=== PATIENT | female | born 1960 | race Caucasian/White ===

== ENCOUNTER → 2017-09-29 22:20 | Emergency (ER) | payer SELFPAY ==
[~2017-09-29 22:20] MED LIST: Ciprofloxacin 400MG IVPREMIX(* 400 MG/200 ML BAG IVPB ONE; NS 0.9% 1000 ML* 1,000 ML IV SCH
[2017-09-30 01:47] LABS: Urine Appearance Cloudy; Urine Blood 2+ (Negative); Urine Color Yellow; Urine Ketones Negative (Negative); Urine Protein Negative (Negative); Urine Specific Gravity 1.008 (1.010-1.030); Urine Urobilinogen Negative (Negative)
[2017-09-30 02:23] LABS: ABS Basophils 0.2 10^3/ul (0-0.2); ABS Eosinophils 0.1 10^3/ul (0-0.6); ABS Lymphocytes 1.7 10^3/ul (1.0-4.8); ABS Monocytes 0.9 10^3/ul (0-0.8); ABS Neutrophils 10.4 10^3/ul (1.5-7.7); ABS Nucleated RBC 0 10^3/ul; Eosinophil % 0.4 % (0-6); Hematocrit 38 % (35-47); Lymphocyte % 13.2 % (25-47); Mean Corpuscular HGB Conc 34 g/dl (31-36); Mean Corpuscular Hemoglobin 31 pg (27-31); Mean Corpuscular Volume 91 fL (80-97); Mean Platelet Volume 8 um3 (7.4-10.4); Nucleated Red Blood Cells % 0; Platelet Count 271 10^3/ul (150-450); Red Blood Count 4.23 10^6/ul (4.0-5.4); Red Cell Distribution Width 14 % (10.5-15); White Blood Count 13.3 10^3/ul (3.5-10.8)
[2017-09-30 03:18] VITALS: BP 137/80
--- NOTE | 2017-10-02 08:50 | PN ---
Progress Note - Progress Note Date of Service: 09/30/17 Note: Urine grew E. coli Patient placed on Cipro prior to discharge.. Will await sensitivities. Nothing further at this time. Carole Alcantar PA-C
--- NOTE | 2017-10-03 08:58 | PN ---
Progress Note - Progress Note Date of Service: 09/30/17 Note: diagnosed and treated for UTI with cipro. has appropriate coverage according to final urine culture results. no further action required at this time.
--- NOTE | 2017-10-15 01:21 | ED ---
Ruby Evans Emily, scribed for Bruce Madden MD on 09/30/17 at 0135 . Abdominal Pain/Female - HPI Summary HPI Summary: This patient is a 57 year old F presenting to [facility] accompanied by family with a chief complaint of R flank pain that began 0800 yesterday. The patient rates the pain 8/10 in severity. Symptoms aggravated by nothing. Symptoms alleviated by nothing. Patient reports nausea, vomiting, fever, chills, and MROALES. Patient denies diarrhea and hematuria. Medications reviewed. Allergies reviewed. - History of Current Complaint Chief Complaint: EDAbdPain Stated Complaint: BACK PAIN Hx Obtained From: Patient Onset/Duration: Sudden Onset, Lasting Hours, Still Present Timing: Constant Severity Initially: Severe Severity Currently: Severe Pain Intensity: 8 Pain Scale Used: 0-10 Numeric Location: Flank Aggravating Factor(s): Nothing Alleviating Factor(s): Nothing Associated Signs and Symptoms: Positive: Fever, Nausea, Vomiting, Other: - Positive chills and MORALES. Negative hematuria. Negative: Diarrhea Allergies/Adverse Reactions: Allergies Allergy/AdvReac Type Severity Reaction Status Date / Time No Known Allergies Allergy Verified 09/30/17 01:21 Home Medications: Home Medications Loratadine [Claritin 10 MG CAP] 10 mg PO DAILY 09/30/17 [History Confirmed 09/30] PMH/Surg Hx/FS Hx/Imm Hx Previously Healthy: No Opthamlomology History: Denies: Hx Legally Blind EENT History: Denies: Hx Deafness - Surgical History Surgery Procedure, Year, and Place: --2012 Infectious Disease History: No Infectious Disease History: Denies: Traveled Outside the [place] in Last 30 Days - Family History Known Family History: Positive: Cardiac Disease, Hypertension, Diabetes - Social History Occupation: Employed Full-time Lives: With Family Alcohol Use: None Substance Use Type: Reports: None Smoking Status (MU): Current Every Day Smoker Amount Used/How Often: 1/2 PPD Length of Time of Smoking/Using Tobacco: 25 Have You Smoked in the Last Year: Yes Review of Systems Positive: Fever, Chills Positive: Vomiting, Nausea. Negative: Diarrhea Negative: hematuria Positive: Headache All Other Systems Reviewed And Are Negative: Yes Physical Exam - Summary Physical Exam Summary: Appearance: Well-appearing, Well-nourished Skin: Warm, Dry, No rash Eyes: Normal, PERRL, EOMI, sclera anicteric ENT: Normal Neck: Supple, nontender Respiratory: Clear to auscultation Cardiovascular: S1, S2, no murmur, no rub, no gallop Abdomen: Soft, no organomegaly, R flank tenderness. Mild right abdominal pain Bowel sounds: Present Musculoskeletal: Normal, Strength/ROM Intact, no edema, pulses symmetrical Neurological: Normal, A&Ox3, cranial nerves II-XII WNL, follows commands, gait not tested, sensation intact to pin and light touch Psychiatric: affect normal, behavior appropriate, dressed appropriately, judgment intact Triage Information Reviewed: Yes Vital Signs On Initial Exam: Initial Vitals Temp Pulse Resp BP Pulse Ox 98.9 F 78 16 152/61 96 09/29/17 22:35 09/29/17 22:35 09/29/17 22:35 09/29/17 22:35 09/29/17 22:35 Vital Signs Reviewed: Yes - Cesar Coma Scale Coma Scale Total: 15 Diagnostics - Vital Signs Vital Signs Temp Pulse Resp BP Pulse Ox 09/30/17 00:55 98.6 F 75 16 132/55 98 09/29/17 22:35 98.9 F 78 16 152/61 96 - Laboratory Result Diagrams: 09/30/17 02:15 09/30/17 02:15 Lab Statement: Any lab studies that have been ordered have been reviewed, and results considered in the medical decision making process. Abdominal Pain Fem Course/Dx - Course Course Of Treatment: This patient is a 57 year old F presenting to [facility] accompanied by family with a chief complaint of R flank pain that began 0800 yesterday. Physical Exam Findings. R flank tenderness. Mild right abdominal pain. Bloodwork and UA obtained. In the ED course the patient was given Ciprofloxacin and fluids. Patient will be discharged with prescription for Ciprofloxacin and follow up from PCP. The patient is agreeable with this plan. - Diagnoses Provider Diagnoses: Pyelonephritis Discharge - Discharge Plan Condition: Fair Disposition: HOME Prescriptions: Ciprofloxacin TAB* [Cipro 500 MG TAB*] 500 mg PO DAILY #14 tab Patient Education Materials: Urinary Tract Infection in Women (ED) Referrals: No Primary Care Phys,NOPCP [Primary Care Provider] - The documentation as recorded by the Ruby barrera Emily accurately reflects the service I personally performed and the decisions made by me, Bruce Madden MD.
== END | disposition home or self-care (01) ==
LOC: ED 22:20
DX: N12 Tubulo-interstitial nephritis, not specified as acute or chronic (principal); R11.2 Nausea with vomiting, unspecified; R50.9 Fever, unspecified; R51 Headache; F17.210 Nicotine dependence, cigarettes, uncomplicated
CPT/HCPCS: 36415; 80053; 81003; 81015; 83690; 85025; 87077; 87086; 87186; 99282; J0744

== ENCOUNTER 2018-12-18 12:43 | Emergency (ER) | payer SELFPAY ==
[2018-12-18 13:14] VITALS: BP 166/90
--- NOTE | 2018-12-18 13:47 | UC ---
Respiratory Complaint HPI - HPI Summary HPI Summary: Ms. Rudolph presented C/O about a week of URI symptoms that have mostly resolved aside from a productive cough. She has now developed a right sided lateral chest pain and is concerned that she may have pneumonia - History of Current Complaint Chief Complaint: UCRespiratory Stated Complaint: CONGESTION RIB PAIN Time Seen by Provider: 12/18/18 13:16 Hx Obtained From: Patient Onset/Duration: Gradual Onset Pain Intensity: 5 - Allergies/Home Medications Allergies/Adverse Reactions: Allergies Allergy/AdvReac Type Severity Reaction Status Date / Time No Known Allergies Allergy Verified 12/18/18 13:13 PMH/Surg Hx/FS Hx/Imm Hx Previously Healthy: Yes - Surgical History Surgical History: Yes Surgery Procedure, Year, and Place: --2012 - Family History Known Family History: Positive: Cardiac Disease, Hypertension, Diabetes - Social History Alcohol Use: None Substance Use Type: None Smoking Status (MU): Light Every Day Tobacco Smoker Amount Used/How Often: 1/2 PPD Length of Time of Smoking/Using Tobacco: 25 Have You Smoked in the Last Year: Yes - Immunization History Most Recent Tetanus Shot: a long time, perhaps early Review of Systems All Other Systems Reviewed And Are Negative: Yes Constitutional: Positive: Fatigue Skin: Positive: Negative Eyes: Positive: Negative ENT: Positive: Sore Throat, Nasal Discharge Respiratory: Positive: Cough Cardiovascular: Positive: Negative Gastrointestinal: Positive: Negative Genitourinary: Positive: Negative Physical Exam - Summary Physical Exam Summary: She is non-toxic in appearance with stable vitals No apparent respiratory distress. Triage Information Reviewed: Yes Appearance: Well-Appearing Vital Signs: Initial Vital Signs Temp 98.6 F 12/18/18 13:09 Pulse 113 12/18/18 13:09 Resp 18 12/18/18 13:09 BP 166/90 12/18/18 13:09 Pulse Ox 99 12/18/18 13:09 Vital Signs Reviewed: Yes ENT Exam: Normal Neck exam: Normal Respiratory Exam: Normal Cardiovascular Exam: Normal Abdominal Exam: Normal Psychological Exam: Normal Diagnostics - Radiology CXR Radiology Interpretation Completed By: Radiologist Summary of Radiographic Findings: No acute process Respiratory Course/Dx - Course Course Of Treatment: This is likely a viral bronchitis. She is a smoker but I will trial her on supportive treatment. - Differential Dx/Diagnosis Provider Diagnosis: Bronchitis Discharge - Sign-Out/Discharge Documenting (check all that apply): Patient Departure All imaging exams completed and their final reports reviewed: Yes - Discharge Plan Condition: Stable Disposition: HOME Patient Education Materials: Acute Bronchitis (ED) Referrals: No Primary Care Phys,NOPCP [Primary Care Provider] - - Billing Disposition and Condition Condition: STABLE Disposition: Home
== END 2018-12-18 14:29 | disposition home or self-care (01) ==
LOC: UCEAST 12:43
DX: J40 Bronchitis, not specified as acute or chronic (principal); F17.210 Nicotine dependence, cigarettes, uncomplicated
CPT/HCPCS: 71046; 99212; G0463

== ENCOUNTER 2018-12-24 17:54 | Inpatient (IN) | payer SELFPAY ==
[2018-12-24 18:25] LABS: Influenza A Molecular NEGATIVE (Negative); Influenza B Molecular NEGATIVE (Negative)
[2018-12-24 18:43] LABS: Hematocrit 39 % (33-41); Hemoglobin 13.1 g/dL (12.0-16.0); Mean Corpuscular HGB Conc 33 g/dL (31-36); Mean Corpuscular Hemoglobin 30 pg (27-31); Mean Corpuscular Volume 89 fL (80-97); Mean Platelet Volume 8.2 fL (7.4-10.4); Platelet Count 347 10^3/uL (150-450); Red Blood Count 4.41 10^6 /uL (3.70-4.87); Red Cell Distribution Width 14 % (10.5-15); White Blood Count 15.3 10^3/uL (3.5-10.8)
--- NOTE | 2018-12-24 18:54 | ED ---
Influenza-Like Illness - HPI Summary HPI Summary: Patient complains of flulike symptoms 2 weeks. Symptoms include cough, chest pain and back pain with coughing, body aches, decreased appetite, headache. Patient went to [facility] 1 week ago was diagnosed with bronchitis due to negative chest x-ray. Patient states symptoms have progressed she now has joint pain, MORALES, pain with inhalation, shortness of breath. Patient denies neck stiffness, N/V/D, abdominal pain, change in urine, change in BM. Patient denies estrogen supplements, recent history of surgery or trauma, history of blood clots, history of unilateral leg pain. Medical history is none. Positive smoker. - History of Current Complaint Chief Complaint: EDFluSymptoms Time Seen by Provider: 12/24/18 18:17 Hx Obtained From: Patient Onset/Duration: Gradual Onset, Lasting Weeks Severity: Moderate Associated Signs & Symptoms: Fever, Myalgia, Cough, Headache - Allergy/Home Medications Allergies/Adverse Reactions: Allergies Allergy/AdvReac Type Severity Reaction Status Date / Time No Known Allergies Allergy Verified 12/24/18 17:59 PMH/Surg Hx/FS Hx/Imm Hx Endocrine/Hematology History: Denies: Hx Anticoagulant Therapy Cardiovascular History: Denies: Hx Pacemaker/ICD History: Denies: Hx Dialysis Sensory History: Denies: Hx Legally Blind, Hx Deafness Opthamlomology History: Denies: Hx Legally Blind EENT History: Denies: Hx Deafness Neurological History: Denies: Hx Dementia Psychiatric History: Denies: Hx Autism - Surgical History Surgery Procedure, Year, and Place: --2012 Infectious Disease History: No Infectious Disease History: Denies: Traveled Outside the [place] in Last 30 Days - Family History Known Family History: Positive: Cardiac Disease, Hypertension, Diabetes - Social History Alcohol Use: None Substance Use Type: Reports: None Hx Tobacco Use: Yes Smoking Status (MU): Light Every Day Tobacco Smoker Amount Used/How Often: 1/2 PPD Length of Time of Smoking/Using Tobacco: 25 Have You Smoked in the Last Year: Yes Review of Systems Positive: Fever Eyes: Negative ENT: Negative Positive: Chest Pain Positive: Shortness Of Breath, Cough Gastrointestinal: Negative Genitourinary: Negative Positive: Arthralgia, Myalgia Skin: Negative Positive: Headache Psychological: Normal All Other Systems Reviewed And Are Negative: Yes Physical Exam - Summary Physical Exam Summary: Lung sounds clear to auscultation bilaterally. RRR. Abdomen soft nontender. ENT exam unremarkable. Triage Information Reviewed: Yes Vital Signs On Initial Exam: Initial Vitals Temp Pulse Resp BP Pulse Ox 99.9 F 133 18 127/71 91 12/24/18 17:55 12/24/18 17:55 12/24/18 17:55 12/24/18 17:55 12/24/18 17:55 Vital Signs Reviewed: Yes Appearance: Positive: Well-Appearing Skin: Positive: Warm Head/Face: Positive: Normal Head/Face Inspection Eyes: Positive: Normal ENT: Positive: Normal ENT inspection Neck: Positive: Supple Respiratory/Lung Sounds: Positive: Clear to Auscultation Cardiovascular: Positive: Normal Abdomen Description: Positive: Nontender Musculoskeletal: Positive: Normal Neurological: Positive: Normal Psychiatric: Positive: Normal AVPU Assessment: Alert - [place] Coma Scale Best Eye Response: 4 - Spontaneous Best Motor Response: 6 - Obeys Commands Best Verbal Response: 5 - Oriented Coma Scale Total: 15 Diagnostics - Vital Signs Vital Signs Temp Pulse Resp BP Pulse Ox 12/24/18 17:55 99.9 F 133 18 127/71 91 - Laboratory Lab Results: Lab Results 12/24/18 12/24/18 Range/Units 18:01 18:36 WBC 15.3 H (3.5-10.8) 10^3/uL RBC 4.41 (3.70-4.87) 10^6 /uL Hgb 13.1 (12.0-16.0) g/dL Hct 39 (33-41) % MCV 89 (80-97) fL MCH 30 (27-31) pg MCHC 33 (31-36) g/dL RDW 14 (10.5-15) % Plt Count 347 (150-450) 10^3/uL MPV 8.2 (7.4-10.4) fL Neut % (Auto) Pending Lymph % (Auto) Pending Wolfe % (Auto) Pending Eos % (Auto) Pending Baso % (Auto) Pending Absolute Neuts (auto) Pending Absolute Lymphs (auto) Pending Absolute Monos (auto) Pending Absolute Eos (auto) Pending Absolute Basos (auto) Pending Absolute Nucleated RBC Pending Nucleated RBC % Pending Influenza A (Rapid) Negative (Negative) Influenza B (Rapid) Negative (Negative) Result Diagrams: 12/24/18 18:36 12/24/18 18:36 Lab Statement: Any lab studies that have been ordered have been reviewed, and results considered in the medical decision making process. Flu Symptom Course/Dx - Course Course Of Treatment: Patient complains of flulike symptoms 2 weeks. Symptoms include cough, chest pain and back pain with coughing, body aches, decreased appetite, headache. Patient went to [facility] 1 week ago was diagnosed with bronchitis due to negative chest x-ray. Patient states symptoms have progressed she now has joint pain, MORALES, pain with inhalation, shortness of breath. Patient denies neck stiffness, N/V/D, abdominal pain, change in urine, change in BM. Patient denies estrogen supplements, recent history of surgery or trauma, history of blood clots, history of unilateral leg pain. Medical history is none. Positive smoker. Physical exam:Lung sounds clear to auscultation bilaterally. RRR. Abdomen soft nontender. ENT exam unremarkable. Patient febrile, tachycardic, tachypneic. O2 sats low 90s. WBC 15.3. ABG PO2 56. CRP 222. Sodium 127. Potassium 3.4. Anion gap 12. Flu negative. Chest x-ray positive for left lower lobe pneumonia. Diagnosis sepsis , pneumonia, hypoxia. Admitted to hospitalist Dr. Ace. Patient started on Levaquin IV here in the ED. - Diagnoses Provider Diagnoses: Sepsis, Hypoxia, Pneumonia Discharge - Sign-Out/Discharge Documenting (check all that apply): Patient Departure Patient Received Moderate/Deep Sedation with Procedure: No - Discharge Plan Condition: Fair Disposition: ADMITTED TO [facility] Referrals: No Primary Care Phys,NOPCP [Primary Care Provider] - - Billing Disposition and Condition Condition: FAIR Disposition: Admitted to [facility]
[2018-12-24 19:01] LABS: Albumin 3.5 g/dL (3.2-5.2); C Reactive Protein 222.72 mg/L (<8.01); EGFR African American 99.1 (>60); EGFR Non-African American 81.9 (>60); Globulin 3.5 g/dL (2-4); Potassium 3.4 mmol/L (3.5-5.0); Total Bilirubin 0.8 mg/dL (0.2-1.0)
[2018-12-24] MEDS ORDERED: NS 0.9% 1000 ML** 1,000 ML IV.FLUID IV ONE (19:02)
[2018-12-24 19:07] LABS: HCG Pregnancy 2.66 mIU/mL
[2018-12-24 19:12] LABS: ABS Basophils 0.1 10^3/ul (0-0.2); ABS Eosinophils 0 10^3/ul (0-0.6); ABS Lymphocytes 0.9 10^3/ul (1.0-4.8); ABS Monocytes 0.8 10^3/ul (0-0.8); ABS Neutrophils 13.4 10^3/ul (1.5-7.7); ABS Nucleated RBC 0 10^3/ul; Eosinophil % 0 %; Lymphocyte % 6.1 %; Nucleated Red Blood Cells % 0
[2018-12-24] MEDS ORDERED: Acetaminophen TAB* 325 MG PO ONE (19:36)
[2018-12-24] MEDS ORDERED: NS 0.9% 1000 ML** 1,000 ML IV ONE (19:37)
[2018-12-24] MEDS ORDERED: Levofloxacin 750 MG IVPREMIX(* 750 MG/150 ML BAG IVPB ONE (19:45)
[2018-12-24] MEDS ORDERED: Magnesium Hydroxide LIQ* 30 ML UDC PO PRN (21:13)
[2018-12-24] MEDS ORDERED: Al Hydrox/Mg Hydrox/Simet LIQ* 30 ML UDC PO PRN (21:13)
[2018-12-24] MEDS ORDERED: Temazepam CAP* 15 MG PO PRN (21:13)
[2018-12-24] MEDS ORDERED: Albuterol 2.5 MG/3 ML NEB.SOL* (0.083%) INH PRN (21:13)
[2018-12-24] MEDS ORDERED: NS 0.9% 1000 ML** 1,000 ML IV SCH (21:15)
[2018-12-24] MEDS ORDERED: guaiFENesin LIQ* 100 MG/5 ML UDC PO PRN (21:17)
--- NOTE | 2018-12-24 22:58 | HP ---
Amended report to correct the date of admission. HISTORY AND PHYSICAL: DATE OF ADMISSION: 12/25/18 PRIMARY CARE PROVIDER: None. CHIEF COMPLAINT: Shortness of breath and cough as well as fever. HISTORY OF PRESENT ILLNESS: Erica Rudolph is a 58-year-old female with no significant past medical history, who presented to the hospital originally approximately 6 days ago complaining of coughing. At that point, she was diagnosed with bronchitis and sent home with a cough medication. She stated that she had been not getting better and approximately 2 days prior to her current admission she developed fever and chills. She also started having night sweats and shortness of breath. She came back to the [facility] today and she was sent over to our facility with the diagnosis of pneumonia and hypoxemia. Here she required oxygen at 3 L of nasal cannula. She is going to be placed on overnight observation with diagnosis of acute hypoxemic respiratory failure and pneumonia. PAST MEDICAL HISTORY: 1. Appendectomy in 2012. 2. History of psoriasis treated with [id number] lotions. MEDICATIONS: Included, 1. Loratadine 10 mg daily. 2. Cough syrup guaifenesin with dextromethorphan on a p.r.n. basis. ALLERGIES: No known drug allergies. FAMILY HISTORY: Positive for father who at the age of 52 secondary to aortic aneurysm. SOCIAL HISTORY: The patient smokes 10 cigarettes a day, and she has been doing so for approximately 28 years. She denies any alcohol or drug use. She has her own business as a house servant. She lives with her mother who would be her surrogate and her mother's name is Sheila Rudolph. REVIEW OF SYSTEMS: Please see history of present illness. In addition to the above mentioned, the patient stated that she had been having arthralgias in bilateral ankles when febrile. All the remaining 12 systems were reviewed with the patient and were otherwise negative. PHYSICAL EXAMINATION GENERAL: The patient is a very pleasant 58-year-old female who is in no acute distress. Alert, awake, oriented x3. VITAL SIGNS: Blood pressure of 128/73, heart rate of 104 and regular, respiratory rate 21, oxygen saturation 92% on 2 L oxygen via nasal cannula, 89% on room air. HEENT: Head: Atraumatic, normocephalic. Eyes: Pupils are equal and reactive to light and accommodation. Oropharynx clear. Mucosa moist. NECK: Supple. No JVD, no bruits bilaterally. RESPIRATORY: Decreased breath sounds at the right middle and lower lobes. CARDIOVASCULAR: Regular rate and rhythm, tachycardia. No murmur. ABDOMEN: Soft, nontender. Bowel sounds are present in all 4 quadrants. EXTREMITIES: There is no edema. Pulses are +2 bilaterally. There is no clubbing or cyanosis. Bilateral ankles were examined. There was no tenderness to palpation and range of motion is intact. SKIN: On examination of the skin, the patient has scattered psoriasis plaque throughout her bilateral upper and lower extremities. NEUROLOGIC: Speech is clear. Cranial nerves II through XII grossly intact. Motor strength is 5/5 bilaterally. PSYCHIATRIC: On psychiatric evaluation, oriented x3 with no evidence of anxiety or depression. DIAGNOSTIC STUDIES/LAB DATA: Laboratory data showed white blood cell count of 15.3, hemoglobin of 13.1, hematocrit of 39, and platelets of 247. ABG showed pH of 7.46, PCO2 of 29, PO2 of 56, and bicarb of 23. Sodium 127, potassium 3.4, chloride 91, carbon dioxide 24, BUN 12, creatinine 0.73. Liver function tests were slightly elevated AST of 49 and alkaline phosphatase of 124. C-reactive protein was 222, lactic acid of 1.2. Influenza testing was negative. The patient's portable chest x-ray showed right middle lobe infiltrate. ASSESSMENT AND PLAN: 1. The patient has pneumonia with sepsis with acute hypoxemic respiratory failure requiring oxygen. At this point, the patient received 1 dose of Levaquin in the emergency department. She is going to be treated with ceftriaxone and azithromycin during the hospital stay. Urine legionella and Streptococcus pneumoniae antigens are going to be obtained as well as well as sputum cultures. Blood cultures were reobtained and flu testing is negative. The patient is going to be placed on continuous intravenous fluids. I will also place the patient on nebulizers on a p.r.n. basis. Currently not wheezing. I suspect that at some point she will try to mobilize her secretions. 2. The patient's hyponatremia is likely due to dehydration. Intravenous fluids are going to be provided and basic metabolic panel is going to be repeated in the morning. 3. For DVT prophylaxis, the patient is going to be placed on heparin subcutaneously. 4. The patient's code status is full and her surrogate decision maker is her mother. 5. The patient has a history of tobacco dependence and she is not interested in nicotine supplementation at this point. She was consulted for approximately 4 minutes during her hospital stay and about harms of smoking and recommended cessation. TIME SPENT: Approximately 65 minutes was spent on the admission of this patient , more than half that time was spent [id number] with the patient during the interview and physical exam. [id number]/[facility] #: [id number] STEFFEN
[2018-12-25] MEDS: cefTRIAXone(*) 1 GM in NS 0.9% 50 ML* 50 ML IVPB SCH ×2 (00:01→23:46)
[2018-12-25] MEDS: Heparin VIAL(*) 5000 UNITS/ML VIAL (FIVE THOUSAND) SUBCUT SCH ×4 (00:02→21:40)
[2018-12-25] MEDS: Azithromycin IV(*) 500 MG in NS 0.9% 250 ML* 250 ML IVPB SCH (00:53)
[2018-12-25] MEDS ORDERED: Acetaminophen TAB* 325 MG PO PRN (02:39)
[2018-12-25 07:27] LABS: ABS Basophils 0 10^3/ul (0-0.2); ABS Eosinophils 0 10^3/ul (0-0.6); ABS Lymphocytes 1.6 10^3/ul (1.0-4.8); ABS Monocytes 0.9 10^3/ul (0-0.8); ABS Nucleated RBC 0 10^3/ul; Eosinophil % 0 %; Hematocrit 32 % (33-41); Hemoglobin 10.9 g/dL (12.0-16.0); Lymphocyte % 8.5 %; Mean Corpuscular HGB Conc 34 g/dL (31-36); Mean Corpuscular Hemoglobin 30 pg (27-31); Mean Corpuscular Volume 89 fL (80-97); Mean Platelet Volume 8.4 fL (7.4-10.4); Nucleated Red Blood Cells % 0; Platelet Count 294 10^3/uL (150-450); Red Cell Distribution Width 14 % (10.5-15); White Blood Count 18.4 10^3/uL (3.5-10.8)
[2018-12-25 07:40] LABS: BUN/Creatinine Ratio 12.2 (8-20); Calcium 8.4 mg/dL (8.6-10.3); EGFR Non-African American 129.7 (>60); Potassium 3.1 mmol/L (3.5-5.0)
[2018-12-25 08:07] LABS: C Reactive Protein 260.12 mg/L (<8.01)
[2018-12-25] MEDS ORDERED: Potassium Chlor TAB* 20 MEQ TAB.ER PO STA (09:11)
[2018-12-25] MEDS ORDERED: Albuterol 2.5 MG/3 ML NEB.SOL* (0.083%) INH PRN (09:59)
[2018-12-25] MEDS ORDERED: Benzonatate CAP* 100 MG PO PRN (10:00)
[2018-12-25] MEDS: GuaiFENesin DM* 5 ML UDC PO SCH ×3 (12:11→21:40)
[2018-12-25] MEDS: Albuterol/Ipratropium NEB.SOL* Albuterol 2.5 MG/Ipratropium 0.5 MG 3 ML INH SCH ×2 (13:13→19:15)
[2018-12-25 14:53] LABS: Erythrocyte Sed Rate 93 mm/Hr (0-29)
--- NOTE | 2018-12-25 16:34 | PN ---
Subjective Date of Service: 12/25/18 Interval History: Pt seen and examined. Meds and labs reviewed. Tmax since this AM = 101.6 F, slightly increased leukocytosis CC: Pt mentions her SOB has improved since admission ROS: Denied MORALES/dizziness, F/C, N/V, CP, SOB, increased cough, sputum production , abd pain, diarrhea, constipation, dysuria, myalgias, arthralgias, throat pain , and new skin lesions. The rest of the 14 point ROS are unremarkable. PHYSICAL EXAM: GEN APPEARANCE: Awake, not in acute distress HEENT: NC/AT, PERRLA, moist oral mucosa, (-) throat erythema NECK: Soft, supple, (-) cervical LAD, (-)JVD HEART: S1S2 WNL, RRR, No MRG CHEST: Bibasal crackles, GAE, No W/R/R ABD: Soft, ND/NT, NABS 4x Q EXT: No C/C/E SKIN: Warm to touch PSYCH: No active psychosis, hallucinations, depression, SI/HI Objective Active Medications: Acetaminophen (Tylenol Tab*) 650 mg PO Q4H PRN PRN Reason: FEVER/PAIN Last Admin: 12/25/18 03:14 Dose: 650 mg Al Hydrox/Mg Hydrox/Simethicone (Maalox Plus*) 30 ml PO Q6H PRN PRN Reason: INDIGESTION Albuterol (Ventolin 2.5 Mg/3 Ml Neb.Kimmy*) 2.5 mg INH [id number] AWAKE PRN PRN Reason: sob/wheezing Albuterol (Ventolin 2.5 Mg/3 Ml Neb.Kimmy*) 2.5 mg INH Q2H PRN PRN Reason: SOB/WHEEZING Albuterol/Ipratropium (Duoneb (Albuterol 2.5 Mg/Ipratropium 0.5 Mg)) 1 neb INH [id number] AWAKE [facility] Last Admin: 12/25/18 13:13 Dose: 1 neb Benzonatate (Tessalon Cap*) 100 mg PO Q6H PRN PRN Reason: COUGH Guaifenesin (Robitussin*) 5 ml PO Q4H PRN PRN Reason: COUGH Guaifenesin/Dextromethorphan (Robitussin Dm*) 10 ml PO TID [facility] Stop: 12/28/18 09:59 Last Admin: 12/25/18 14:32 Dose: Not Given Heparin Sodium (Porcine) (Heparin Vial(*)) 5,000 units SUBCUT Q8HR [facility] Last Admin: 12/25/18 12:12 Dose: 5,000 units Ceftriaxone Sodium 1 gm/ (Sodium Chloride) 50 mls @ 200 mls/hr IVPB Q24H [facility] Last Admin: 12/25/18 00:01 Dose: 200 mls/hr Azithromycin 500 mg/ Sodium (Chloride) 250 mls @ 250 mls/hr IVPB Q24H [facility] Last Admin: 12/25/18 00:53 Dose: 250 mls/hr Vancomycin HCl 1,500 mg/ (Sodium Chloride) 250 mls @ 166.667 mls/hr IVPB ONCE ONE Stop: 12/25/18 17:56 Magnesium Hydroxide (Milk Of Magnesia Liq*) 30 ml PO Q4H PRN PRN Reason: CONSTIPATION Pharmacy Consult (Vancomycin Per Pharmacy*) 1 note FOLLOW UP .VANC PER PHARMACY [facility] Temazepam (Restoril Cap*) 15 mg PO BEDTIME PRN PRN Reason: INSOMNIA Vital Signs - 8 hr 12/25/18 12/25/18 12:04 13:18 Temperature 98.7 F Pulse Rate 93 108 Respiratory 16 16 Rate Blood Pressure 141/57 (mmHg) O2 Sat by Pulse 95 92 Oximetry Oxygen Devices in Use Now: None Result Diagrams: 12/25/18 07:08 12/25/18 07:08 Additional Lab and Data: Lab Results 12/24/18 12/24/18 Range/Units 18:01 18:36 WBC 15.3 H (3.5-10.8) 10^3/uL RBC 4.41 (3.70-4.87) 10^6 /uL Hgb 13.1 (12.0-16.0) g/dL Hct 39 (33-41) % MCV 89 (80-97) fL MCH 30 (27-31) pg MCHC 33 (31-36) g/dL RDW 14 (10.5-15) % Plt Count 347 (150-450) 10^3/uL MPV 8.2 (7.4-10.4) fL Neut % (Auto) Pending Lymph % (Auto) Pending Ralls % (Auto) Pending Eos % (Auto) Pending Baso % (Auto) Pending Absolute Neuts (auto) Pending Absolute Lymphs (auto) Pending Absolute Monos (auto) Pending Absolute Eos (auto) Pending Absolute Basos (auto) Pending Absolute Nucleated RBC Pending Nucleated RBC % Pending Influenza A (Rapid) Negative (Negative) Influenza B (Rapid) Negative (Negative) Microbiology and Other Data: Microbiology 12/25/18 08:51 Gram Stain - Final Sputum 12/25/18 03:15 Legionella Urinary Antigen - Final Urine Negative Legionella Antigen 12/25/18 03:15 Streptococcus pneumoniae Ag Screen - Final Urine Negative S. pneumo Antigen Assess/Plan/Problems-Billing Assessment: - Patient Problems (1) Sepsis due to pneumonia Current Visit: Yes Status: Acute Code(s): J18.9 - PNEUMONIA, UNSPECIFIED ORGANISM; A41.9 - SEPSIS, UNSPECIFIED ORGANISM SNOMED Code(s): 29788433 Comment: -Sepsis mild, by SIRS criteria -qSOFA =1; pt does not appear to have significant RAD to require steroids -Mildly increased leukocytosis is likely a lag since presentation a few hours prior o/n given pt clinically appears stable and feels better -Pt denies any recent hospitalization in the last 3 mos -Will continue Rocephin and Azithromycin for now -Place pt on nebs as ordered -Gram positive cocci in sputum; w/negative S. pneumonia and Legionealla urine Ags; at this time since S. pneumo has been ruled out, will start pt on Vancomycin until species is identified as non MRSA given increased white count (2) Hyponatremia Current Visit: Yes Status: Acute Code(s): E87.1 - HYPO-OSMOLALITY AND HYPONATREMIA SNOMED Code(s): 64855906 Comment: -Thought to be due to hypovolemia -Improved with hydration -Continue watchful waiting (3) DVT prophylaxis Current Visit: Yes Status: Acute Code(s): DRE5811 - SNOMED Code(s): 579766998 Comment: -Continue Heparin [id number] Status and Disposition: -Possible D/C in 1-2 days -Will await species of sputum culture -Will await blood Cx data -For F/U of ESR and WBC -For ambulatory sats in AM
[2018-12-25] MEDS ORDERED: Vancomycin(*) 1,500 MG in NS 0.9% 250 ML* 250 ML IVPB ONE (16:45)
[2018-12-25] MEDS ORDERED: Vancomycin per Pharmacy* NOTE FOLLOW UP SCH (17:00)
[2018-12-26] MEDS: Azithromycin IV(*) 500 MG in NS 0.9% 250 ML* 250 ML IVPB SCH (00:28)
[2018-12-26] MEDS: Vancomycin(*) 1,000 MG in NS 0.9% 250 ML* 250 ML IVPB SCH ×2 (02:15→09:07)
[2018-12-26] MEDS: Heparin VIAL(*) 5000 UNITS/ML VIAL (FIVE THOUSAND) SUBCUT SCH (06:17)
[2018-12-26 07:34] LABS: Hematocrit 32 % (33-41); Hemoglobin 10.6 g/dL (12.0-16.0); Mean Corpuscular HGB Conc 34 g/dL (31-36); Mean Corpuscular Hemoglobin 30 pg (27-31); Mean Corpuscular Volume 90 fL (80-97); Mean Platelet Volume 8.3 fL (7.4-10.4); Platelet Count 324 10^3/uL (150-450); Red Blood Count 3.54 10^6 /uL (3.70-4.87); Red Cell Distribution Width 14 % (10.5-15)
[2018-12-26 07:49] LABS: Albumin 2.9 g/dL (3.2-5.2); Calcium 8.5 mg/dL (8.6-10.3); Magnesium 1.9 mg/dL (1.9-2.7); Potassium 3.2 mmol/L (3.5-5.0); Total Bilirubin 0.3 mg/dL (0.2-1.0)
[2018-12-26 07:55] LABS: BUN/Creatinine Ratio 16.7 (8-20); C Reactive Protein 243.46 mg/L (<8.01); EGFR African American 160.7 (>60); EGFR Non-African American 132.8 (>60); Phosphorus 3.2 mg/dL (2.5-5.0); Total Protein 5.9 g/dL (6.4-8.9)
[2018-12-26 07:59] VITALS: BP 144/67
[2018-12-26 08:42] LABS: Erythrocyte Sed Rate 110 mm/Hr (0-29)
[2018-12-26] MEDS: GuaiFENesin DM* 5 ML UDC PO SCH (09:07)
--- NOTE | 2018-12-26 13:06 | DS ---
CC: Dr. Xiomy Ace; Dr. Isak Reid* DISCHARGE SUMMARY: DATE OF ADMISSION: 12/25/18 DATE OF DISCHARGE: 12/26/18 DISCHARGE CONDITION: Fair. DISCHARGE DISPOSITION: Home. DISCHARGE DIAGNOSES: As follows: 1. Sepsis due to pneumonia, sepsis resolved. 2. Hypovolemic hyponatremia, resolved. DISCHARGE MEDICATIONS: As follows: 1. Tylenol 650 mg p.o. q.6 p.r.n. 2. Benzonatate 100 mg p.o. q.6 p.r.n. 3. Azithromycin 250 mg p.o. daily for 3 more days. The patient is to start tomorrow. 4. Cefdinir 300 mg p.o. b.i.d. for 7 days. 5. Guaifenesin/dextromethorphan 118 mL p.o. q.4 hours p.r.n. 6. Floranex tabs 2 tabs p.o. daily. 7. Loratadine 10 mg p.o. daily. HISTORY OF PRESENT ILLNESS/HOSPITAL COURSE: The patient is a 58-year-old lady with no significant documented past medical history, who presented with shortness of breath and cough as well as fever. She was diagnosed with community- acquired pneumonia and was placed on Rocephin and azithromycin where she had a rapid clinical defervescence of her sepsis. Her cultures remained negative for 1 day as far as her blood cultures that are concerned. Her sputum cultures only showed 1+ gram-positive cocci and Strep pneumoniae and Legionella urinary antigen were all found to be negative. Her leukocytosis has significantly improved from 18.4 yesterday to 11 today and she looks clinically improved. The patient also had an ambulatory saturation test done and only went as low as 89% and therefore the patient will be discharged home without any need for oxygen. The patient had been advised to follow up and/or call her PCP within 3 days post discharge and if her symptoms resume or develop new ones or feel unwell for any reason, she was advised to call her PCP first. If her PCP cannot entertain her due to scheduling issues alone, she was advised to call [facility] if the issue is nonemergent. She was advised to call my office regarding any questions, concerns, or further clarifications regarding her discharge plans and/or prescriptions and to take her medications as prescribed. REVIEW OF SYSTEMS: The patient denied any recent headaches, dizziness, fevers, chills, nausea, vomiting, chest pain, shortness of breath, increased coughing or sputum production, abdominal pain, diarrhea, constipation, pain and/or increased frequency on urination, myalgias, arthralgias, throat pain, or new skin lesions. The rest of the 14-point review of systems is otherwise unremarkable. PHYSICAL EXAMINATION: Shows the most recent vital signs of record with blood pressure of 144/67, 16 per minute respiratory rate, saturating at 94% on room air, 84 per minute heart rate, 98.4 degrees Fahrenheit temperature. General Appearance: The patient is awake, not in acute distress. HEENT: Normocephalic , atraumatic. PERRLA. Extraocular muscles intact. Negative for icterus. Moist oral mucosa. Negative throat erythema. Neck is soft, supple with no cervical lymphadenopathy, no JVD. Heart: S1, S2 within normal limits. Regular rate and rhythm. No murmurs, rubs, or gallops. Chest: Clear to auscultation bilaterally. Good air entry. No wheezes, rales, or rhonchi. Abdomen is soft, nondistended, nontender. Normoactive bowel sounds x4 quadrants. Extremities: No cyanosis, clubbing, or edema. Psychiatric: No active psychosis, depression, suicidal or homicidal ideation. Skin is warm to touch. TIME SPENT: The total time spent evaluating the patient, reviewing pertinent data and appropriate documentation is 40 minutes. [id number]/[facility] #: [id number] [place]
[2018-12-26] MEDS ORDERED: Vancomycin Trough Check NOTE FOLLOW UP ONE (17:00)
== END 2018-12-26 13:20 | disposition home or self-care (01) | DRG 871 ==
LOC: ED 17:54 → MED 21:13 → OBSVTOIN 12-25 15:11
PROVIDERS: ADMIT Internal Medicine; ATTEND Student in an Organized Health Care Education/Training Program
DX: A41.9 Sepsis, unspecified organism (principal); J96.01 Acute respiratory failure with hypoxia; J18.1 Lobar pneumonia, unspecified organism; E86.1 Hypovolemia; E87.1 Hypo-osmolality and hyponatremia; F17.210 Nicotine dependence, cigarettes, uncomplicated; Z82.49 Family history of ischemic heart disease and other diseases of the circulatory system; Z83.3 Family history of diabetes mellitus
CPT/HCPCS: 36415; 71046; 80048; 80053; 82803; 83605; 83735; 84100; 84702; 85025; 85027; 85652; 86140; 87040; 87070; 87205; 87899; 93005; 94640; 99284; A9270-GY; J0456; J0696; J1644; J3370